=== PATIENT | male | born 1965 | race Caucasian/White ===

== ENCOUNTER 2024-12-16 06:35 | Day surgery (SDC) | payer OTHER, SELFPAY ==
[2024-12-15 09:37] VITALS: BP 117/55; PULSE 70; RESP 18; TEMP 98.1
[2024-12-15 09:59] LABS: BASOPHILS # (AUTO) 0.04 K/uL (0.00-0.20); BASOPHILS % (AUTO) 0.6 % (0.0-5.0); EOSINOPHILS # (AUTO) 0.42 K/uL (0.00-0.70); EOSINOPHILS % (AUTO) 5.8 % (0.0-8.0); HEMATOCRIT 39.1 % (42-54); IMMATURE GRANULOCYTE ABSOLUTE 0.02 K/uL (0-1); LYMPHOCYTES # (AUTO) 1.7 K/uL (1.0-4.8); LYMPHOCYTES % (AUTO) 23.3 % (21.0-51.0); MEAN CORPUSCULAR HEMOGLOBIN 28.8 pg (27.0-33.0); MEAN CORPUSCULAR HGB CONC 33.2 g/dL (32.0-36.0); MEAN CORPUSCULAR VOLUME 86.5 fL (79-99); MONOCYTES # (AUTO) 0.7 K/uL (0.1-1.0); MONOCYTES % (AUTO) 9.1 % (3.0-13.0); NEUTROPHILS # (AUTO) 4.4 K/uL (1.8-7.7); NEUTROPHILS % (AUTO) 60.9 % (40.0-77.0); PLATELET COUNT (AUTO) 294 K/uL (130-400); RED BLOOD CELL COUNT(AUTO) 4.52 MIL/uL (4.50-6.20); RED CELL DISTRIBUTION WIDTH 12.2 % (11.0-15.5); WHITE BLOOD COUNT (AUTO) 7.2 K/uL (4.8-10.8)
--- NOTE | 2024-12-15 10:06 | EKG ---
[facility] Test Date: 2024-12-15 Test Time: 09:34:07 Pat [facility] Room: [facility] Gender: M Scagliola Mechanic: [id number] : 1965 Requested By: DELL HIGH Order Number: [id number] Reading MD: Vinay Shea Measurements Intervals Dema Rate: 67 P: 49 AZ: 227 QRS: 48 QRSD: 96 T: 29 QT: 396 QTc: 418 Interpretive Statements Sinus rhythm Prolonged [place] interval ST elevation, consider anterior injury No previous ECG available for comparison Electronically Signed On 12-17-2024 14:12:00 CDT by Vinay Shea Please click the below link to view image of tracing.
[2024-12-15 10:15] LABS: ALBUMIN 4.1 g/dL (3.5-5.0); BILIRUBIN,TOTAL 0.4 mg/dL (0.2-1.0); POTASSIUM 4.7 mmol/L (3.5-5.1); TOTAL PROTEIN, SERUM 7.5 g/dL (6.0-8.3)
[2024-12-15 10:20] LABS: INR 1.08 (0.85-1.15); PROTHROMBIN TIME 11.4 SEC (9.6-11.6)
[2024-12-15 10:21] LABS: PARTIAL THROMBOPLASTIN TIME 27.5 SEC (26.3-35.5)
--- NOTE | 2024-12-15 11:14 | NUR ---
RE: EKG REPORTED EKG RESULTS TO DR GREWAL, NO NEW ORDERS RECEIVED. (CARDIAC CLEARANCE IN CHART)
[2024-12-16] VITALS (13 sets, daily range): BP systolic 93–129; BP diastolic 48–89; PULSE 65–85; RESP 14–18; TEMP 97.5–97.9
[~2024-12-16] VITALS: Ht 162.6 cm; Wt 63.8 kg
[~2024-12-16 06:35] MED LIST: ALBU2TAB PO; ATOR10 PO; FENO145T26 PO; LEVO75CA5 PO; MONT-39 PO
[2024-12-16] MEDS: ceFAZolin SODIUM 2 GM VIAL ONE (07:12)
[2024-12-16] MEDS: LACTATED RINGERS 1000ML 1,000 ML IV ONE (07:12)
[2024-12-16] MEDS ORDERED: FENO134C21 PO (07:26)
[2024-12-16] MEDS ORDERED: LIDOCAINE PF 100MG/5ML (2%) SYRINGE 5ML ONE (08:16)
[2024-12-16] MEDS ORDERED: proPOFol 10 MG/ML 20ML VIAL IV ONE ×2 (08:16→08:47)
[2024-12-16] MEDS ORDERED: MIDAZOLAM HCL 1 MG/ML 2ML VIAL ONE (08:16)
[2024-12-16] MEDS ORDERED: FENTanyl CITRate PF 50 MCG/1 ML 2ML VIAL ONE (08:17)
[2024-12-16] MEDS ORDERED: LIDOCAINE 1%-EPI 1:100,000 20 ML VIAL ONE (08:52)
[2024-12-16] MEDS ORDERED: BUPIvacaine/PF 0.25% 30ML VIAL IJ ONE (08:52)
[2024-12-16] MEDS: ceFAZolin SODIUM 2 GM VIAL IVPB ONE (09:00)
[2024-12-16] MEDS ORDERED: LIDOCAINE HCL 2% PF 20 ML JEL DISP.SYRIN MM ONE (09:21)
[2024-12-16] MEDS ORDERED: NALoxone HCL 0.4 MG/1 ML ML ONE (09:35)
--- NOTE | 2024-12-16 10:51 | NUR ---
Full and complete discharge instructions given to Patient and Family both verbally and in writing. Explained Surgical procedure precautions and follow up. All questions answered. PIV removed with catheter tip intact. Home with Family W/C to POV.
--- NOTE | 2024-12-18 18:20 | OP ---
Operative Note: DATE OF PROCEDURE: 12/18/24 SURGEON: DELL HIGH MD ASSISTANT PUBLIC DEFENDER: None ANESTHESIA: General ANESTHESIOLOGIST/MEDICAL SUPPLY TECHNICIAN: MEDICAL SUPPLY TECHNICIAN PREOPERATIVE DIAGNOSIS: Anal condyloma POSTOPERATIVE DIAGNOSIS: Anal condyloma PROCEDURE: Excision and fulguration of anal condyloma, extensive Anal canal biopsies ESTIMATED BLOOD LOSS: Minimal DESCRIPTION OF PROCEDURE: After informed consent was obtained, the patient was taken to the operating room and laid in the supine position. Once general anesthesia with an LMA was obtained, the patient was carefully placed into lithotomy position. Next the perianal area was prepped and draped in the usual sterile fashion. A time-out was performed to confirm the correct patient procedure. Next a bilateral pudendal block was performed followed by inspection of the perianal area. There was no condylomatous lesions apparent in the anal margin or anal verge. We then insert a Fansler anoscope in the anal canal was inspected. There were several small condylomatous lesions in the anal canal most prominent in the right posterior and right lateral areas. With the anoscope in place we took biopsies of the posterior midline and right lateral areas. We then completed an extensive excisional fulguration of several perianal condyloma within the anal canal. Once this was done we then ensured hemostasis. Additional local anesthetic was injected for postoperative pain control. A gauze dressing was applied. The patient tolerated the procedure well was taken to the recovery room stable condition. Complications none Specimens: Anal canal biopsy right posterior, right lateral Counts were reported as correct x2 by nursing staff DELL HIGH MD Dec 18, 2024 18:20
== END 2024-12-16 10:50 | disposition home or self-care (01) ==
LOC: DAH 06:35
PROVIDERS: ATTEND Surgery
DX: A63.0 Anogenital (venereal) warts (principal); R85.612 Low grade squamous intraepithelial lesion on cytologic smear of anus (LGSIL); K64.0 First degree hemorrhoids; J45.909 Unspecified asthma, uncomplicated; E03.9 Hypothyroidism, unspecified; I25.10 Atherosclerotic heart disease of native coronary artery without angina pectoris; E66.9 Obesity, unspecified; Z80.0 Family history of malignant neoplasm of digestive organs; Z90.49 Acquired absence of other specified parts of digestive tract; Z98.890 Other specified postprocedural states; Z88.8 Allergy status to other drugs, medicaments and biological substances; Z68.24 Body mass index [BMI] 24.0-24.9, adult; Z79.899 Other long term (current) drug therapy; Z79.01 Long term (current) use of anticoagulants
CPT/HCPCS: 80053; 85025; 85610; 85730; 36415; 93005; 46924; 88305; A6260; A4663; A4649 ×2; A4606; J7120; J3010; J3490 ×2; J2310; J0665 ×2; J2003; J2250; J2704; J0690 ×2; A4215; A4223; A4222; A4221